=== PATIENT | female | born 2000 | race American Indian/Alaskan Native ===

== ENCOUNTER 2022-01-15 12:24 | Outpatient (CLI) | payer OTHER | END 2022-01-15 12:25 | disposition home or self-care (01) | LOC: LABHHL 12:24 | PROVIDERS: ATTEND Surgery | DX: N63.10 Unspecified lump in the right breast, unspecified quadrant (principal); Z79.899 Other long term (current) drug therapy | CPT/HCPCS: 88305 ==

== ENCOUNTER 2022-02-05 07:40 | Day surgery (SDC) | payer OTHER ==
[~2022-02-05 07:40] MED LIST: LACTATED RINGERS 1,000 ML ONE; ceFAZolin/Water 2 GM/20 ML 2 GM/20 ML SYRINGE IV SCH
[2022-02-05] MEDS ORDERED: ACETAMINOPHEN 325 MG TAB PO NR (07:50)
[2022-02-05] MEDS ORDERED: MAGNESIUM OXIDE 400 MG TAB PO NR (07:50)
[2022-02-05] MEDS ORDERED: ONDANSETRON 4 MG/2 ML INJ IV PRN (07:51)
[2022-02-05] MEDS ORDERED: HYDROmorphone 0.5 MG/0.5 ML INJ IV PRN ×2 (07:51)
[2022-02-05] MEDS ORDERED: CELECOXIB 200 MG CAP PO NR (08:00)
[2022-02-05] MEDS ORDERED: MIDAZOLAM 2 MG/2 ML INJ IV NR (08:00)
[2022-02-05] MEDS ORDERED: LACTATED RINGERS 1,000 ML IV SCH (08:00)
[2022-02-05] MEDS ORDERED: LIDOCAINE 2%/EPINEPHRINE 1:200,000 VIAL (20 ML) INFILTRATI ONE (08:08)
[2022-02-05] MEDS ORDERED: BUPIVACAINE/PF (0.5%) 5 MG/1 ML 30 ML VIAL INFILTRATI ONE (08:08)
--- NOTE | 2022-02-05 08:15 | Anesthesia Consultation ---
Anesthesia Consult and Med Hx Date of service: 02/05/22 - Airway Anesthetic Teeth Evaluation: Good ROM Head & Neck: Adequate Mental/Hyoid Distance: Adequate Mallampati Class: Class I Intubation Access Assessment: Good - Pre-Operative Health Status ASA Pre-Surgery Classification: ASA1 Proposed Anesthetic Plan: General - Central Nervous System Hx Psychiatric Problems: No - Hematic Hx Anemia: No Hx Sickle Cell Disease: No - Other Systems Hx Alcohol Use: No Hx Substance Use: No Hx Cancer: No
--- NOTE | 2022-02-05 08:15 | Anesthesia Day of Surgery ---
Anesthesia Day of Surgery - Day of Surgery Patient Examined: Yes Patient H&P Reviewed: Yes Patient is NPO: Yes
[2022-02-05] MEDS ORDERED: SCOPOLAMINE TRANSDERMAL PATCH 72 HR TD ONE (08:20)
[2022-02-05] MEDS ORDERED: LIDOCAINE MPF (2%) 20 MG/1 ML VIAL 5 ML ONE (10:27)
[2022-02-05] MEDS ORDERED: fentaNYL 100 MCG/2 ML INJ ONE (10:27)
[2022-02-05] MEDS ORDERED: propofoL 200 MG/20 ML VIAL IV ONE (10:28)
[2022-02-05] MEDS ORDERED: SODIUM CHLORIDE 0.9% 0 ML ONE (10:31)
[2022-02-05] MEDS ORDERED: dexAMETHasone 20 MG/5 ML VIAL ONE (10:42)
[2022-02-05] MEDS ORDERED: ONDANSETRON 4 MG/2 ML INJ ONE (10:42)
[2022-02-05] MEDS ORDERED: SODIUM CHLORIDE 0.9% 250ML 250 ML ONE (11:00)
[2022-02-05] MEDS ORDERED: LIDOCAINE (1%) 10 MG/1 ML VIAL 20 ML MDV ONE (11:09)
[2022-02-05] MEDS ORDERED: KETOROLAC 30 MG/1 ML INJ ONE (11:21)
[2022-02-05] MEDS ORDERED: ePHEDrine SULFATE 50 MG/1 ML INJ ONE (11:26)
[2022-02-05] MEDS ORDERED: BUPIVACAINE-EPINEPHRINE/PF 0.5%-1:200,000 (30 ML) VIAL INFILTRATI ONE (11:30)
[2022-02-05] MEDS ORDERED: SODIUM CHLORIDE 0.9% 250 ML IVPB IV ONE (11:31)
[2022-02-05] MEDS ORDERED: SODIUM CHLORIDE 0.9% IRR 1,500 ML BOTTLE IR ONE (11:32)
[2022-02-05] MEDS ORDERED: LIDOCAINE (1%) 10 MG/1 ML VIAL 20 ML MDV INFILTRATI ONE (11:50)
--- NOTE | 2022-02-05 11:50 | Short Stay Summary ---
Short Stay Documentation Date of service: 02/05/22 - History H&P: obtained from office - Allergies and Medications Current Medications: Allergies No Known Allergies Allergy (Verified 01/27/22 16:27) Home Medications Medication Instructions Recorded Confirmed Last Taken Type No Known Home Medications [No 01/27/22 01/27/22 Unknown History Reported Home Medications] Active Medications Hydromorphone HCl (Hydromorphone 0.5 Mg/0.5 Ml Inj) 0.5 mg IV Q10MIN PRN PRN Reason: Pain , Severe (7-10) Stop: 02/05/22 20:00 Hydromorphone HCl (Hydromorphone 0.5 Mg/0.5 Ml Inj) 0.25 mg IV Q10MIN PRN PRN Reason: Pain, Moderate (4-6) Stop: 02/05/22 20:00 Cefazolin Sodium (Ancef/Sterile Water 2 Gm/20 Ml) 2 gm in 20 mls @ 80 mls/hr IV PREOP NIMISHA; Protocol Lactated Ringer's (Lactated Ringers) 1,000 mls @ 100 mls/hr IV DIRECT NIMISHA Last Admin: 02/05/22 08:10 Dose: 100 mls/hr Magnesium Oxide (Magnesium Oxide 400 Mg Tab) 400 mg PO ONCE NR Stop: 02/05/22 20:00 Last Admin: 02/05/22 08:30 Dose: 400 mg Midazolam HCl (Midazolam 2 Mg/2 Ml Inj) 2 mg IV PREOP NR Stop: 02/05/22 23:59 Last Admin: 02/05/22 10:35 Dose: 2 mg Ondansetron HCl (Ondansetron 4 Mg/2 Ml Inj) 4 mg IV ONCE PRN PRN Reason: Nausea And Vomiting Stop: 02/05/22 17:00 - Brief post op/procedure progress note Date of procedure: 02/05/22 Pre-op diagnosis: Large fibroadenoma right breast Post-op diagnosis: same Procedure: Excision of large fibroadenoma right breast Anesthesia: GETA Findings: 4 x 3 cm fibroadenoma lower central right breast completely excised. Surgeon: JOSE COTTRELL Estimated blood loss: minimal Pathology: list (Fibroadenoma and capsule) Specimen disposition: to lab Condition: stable - Disposition Condition at discharge: Good Disposition: 01 HOME / SELF CARE / HOMELESS Short Stay Discharge Plan Activity: no restrictions Weight Bearing Status: Full Weight Bearing Diet: regular Wound: keep clean and dry, other (Keep the area compressed with sports bra for 3 days patient may shower today) Follow up with: PRIMARY CARE, [Primary Care Provider] - 7 Days JOSE COTTRELL MD [Staff Physician] - 7 Days Prescriptions: HYDROcodone/APAP 5-325 [[place] 5/325] 1 each PO Q6HR PRN 7 Days #10 tablet PRN Reason: Pain
--- NOTE | 2022-02-05 11:57 | Operative Report ---
Operative Report Operative Report: Date of procedure: 02/05/2022 Preop diagnosis: Right breast fibroadenoma Postop diagnosis: Same Procedure: Excision of right breast fibroadenoma Surgeon: Dr. English Newspaper Publisher: Dr. Calix Anesthesia: LMA general anesthesia Specimen: Right breast fibroadenoma and capsule Estimated blood loss: Minimal Findings: This is a 21-year-old female with a right breast lesion localized on ultrasound. A minimally invasive biopsy as an outpatient was performed that showed a fibroadenoma. Lesion is quite prominent and after discussion of several different strategies patient requested that the lesion be excised. It is associated with pain and is increasing in size over the last 3 months. Patient is taken to the OR and under LMA general anesthesia timeouts and consents are reviewed and are appropriately on the chart. The right breast is prepped with ChloraPrep and draped in a sterile fashion. 0.5% percent Marcaine with epinephrine and normal saline was used as a tumescent solution injected under the skin and just above the pectoral fascia. A curvilinear incision is made in the lower third of the nipple areolar complex. A V-shaped extension is used inferiorly for additional exposure. Curved Lowe and electrocautery was used to elevate flaps superiorly and inferiorly. The area of concern is grasped with an Allis. The fibroadenomas completely excised. Residual capsule was encountered and was also excised. The wound is irrigated with sterile water. Hemostasis is good. The wound is cl osed with 2-0 Vicryl for the subcutaneous tissue and 3-0 Quill for the skin followed by Dermabond.
[2022-02-05 13:44] VITALS: BP 115/80
== END 2022-02-05 13:25 | disposition home or self-care (01) ==
LOC: OR 07:40
PROVIDERS: ATTEND Surgery
DX: D24.1 Benign neoplasm of right breast (principal); Z79.899 Other long term (current) drug therapy; Z98.890 Other specified postprocedural states
CPT/HCPCS: 19120; 81025; 88307; J0690; J1100; J1885; J2250; J2405; J2704; J3010; J3490; J7050; J7120; 88305